=== PATIENT | male | born 1935 | race Caucasian/White ===

== ENCOUNTER 2020-05-29 12:59 | Inpatient (IN) | payer MEDICARE, OTHER ==
[~2020-05-29] VITALS: Ht 172.7 cm; Wt 89.0 kg
[~2020-05-29 12:59] MED LIST: AMLO2.5T5 PO; ASPI-1012 PO; CLON0.1T PO; FOLI0.8T3 PO; LISI40TA9 PO; LORA10TA7 PO; LOVASTATIN PO; METO-408 PO; MONT10TA21 PO; NIAC1000 PO; OMEP20CA4 PO; PSYLLIUM PO; VITAMIN C PO; ZINC50TA64 PO; [UNRECOGNIZED DRUG - CODE] PO; [UNRECOGNIZED DRUG - OTHER] PO; [UNRECOGNIZED DRUG - OTHER] PO; [UNRECOGNIZED DRUG - OTHER] PO
[2020-05-29 13:56] LABS: APPEARANCE,URINE CLOUDY (CLEAR); BILIRUBIN,URINE NEGATIVE (NEGATIVE); COLOR,URINE YELLOW (YELLOW); GLUCOSE, URINE (UA) 100 mg/dL (NEGATIVE); KETONES,URINE NEGATIVE (NEGATIVE); LEUKOCYTE ESTERASE ,URINE MODERATE (NEGATIVE); NITRATE,URINE POSITIVE (NEGATIVE); OCCULT BLOOD,URINE TRACE-INTACT (NEGATIVE); PROTEIN,URINE TRACE mg/dL (NEGATIVE); UROBILINOGEN,URINE 0.2 mg/dL (0.2-1.0)
[2020-05-29 14:00] LABS: BASOPHILS % (AUTO) 0.2 % (0.0-5.0); EOSINOPHILS % (AUTO) 1.1 % (0.0-8.0); HEMATOCRIT 49.7 % (42-54); LYMPHOCYTES % (AUTO) 14.4 % (21.0-51.0); MEAN CORPUSCULAR HEMOGLOBIN 31.9 pg (27.0-33.0); MEAN CORPUSCULAR HGB CONC 33.2 g/dL (32.0-36.0); MEAN CORPUSCULAR VOLUME 96.1 fL (79-99); MONOCYTES % (AUTO) 7.2 % (3.0-13.0); NEUTROPHILS % (AUTO) 76.8 % (40.0-77.0); PLATELET COUNT (AUTO) 235 K/uL (130-400); RED BLOOD CELL COUNT(AUTO) 5.17 MIL/uL (4.50-6.20); RED CELL DISTRIBUTION WIDTH 13.1 % (11.0-15.5); WHITE BLOOD COUNT (AUTO) 13.1 K/uL (4.8-10.8)
[2020-05-29 14:03] LABS: BACTERIA,URINE Many /HPF (None Seen); SQUAMOUS EPITHELIAL CELL,UR 0-2 /HPF (0-2); WBC,URINE TNTC /HPF (0-1)
[2020-05-29] MEDS ORDERED: MORPHINE 2 MG SYG ONE (14:04)
[2020-05-29] MEDS ORDERED: ONDANSETRON 4MG INJ ONE (14:04)
[2020-05-29 14:12] LABS: CREATININE 0.9 mg/dL (0.5-1.5); POTASSIUM 4.3 mmol/L (3.5-5.1)
[2020-05-29 14:16] LABS: ALBUMIN 4.1 g/dL (3.5-5.0); BILIRUBIN,TOTAL 0.6 mg/dL (0.2-1.0); TOTAL PROTEIN, SERUM 8.2 g/dL (6.0-8.3)
[2020-05-29 14:26] LABS: B-TYPE NATRIURETIC PEPTIDE 89 pg/mL (0-100)
[2020-05-29 14:28] LABS: INR 1.01 (0.85-1.15); PROTHROMBIN TIME 10.8 SEC (9.6-11.6)
[2020-05-29] MEDS ORDERED: IOHEXOL-350 75 ML VIAL IV ONE (14:37)
[2020-05-29] MEDS ORDERED: ZOSYN 3.375GM+NS 50ML 50 ML IV ONE (17:46)
[2020-05-29] MEDS ORDERED: ONDANSETRON 4MG INJ IV PRN (20:30)
[2020-05-29] MEDS: FAMOTIDINE 20MG VIAL IV SCH (21:00)
[2020-05-29] MEDS: PHARMACY COMMUNICATION MISC SCH (22:00)
[2020-05-29] MEDS ORDERED: FAMOTIDINE 20MG VIAL IV ONE (22:08)
[2020-05-29 23:10] VITALS: BP 145/80
[2020-05-30] MEDS ORDERED: OMEP20TA25 PO (02:34)
[2020-05-30] MEDS ORDERED: LOVA40TA2 PO (02:34)
[2020-05-30] MEDS ORDERED: LOSA100T58 PO (02:34)
[2020-05-30] MEDS ORDERED: BUDE10.27 IH (02:34)
[2020-05-30] MEDS ORDERED: LORA10TA7 PO (02:34)
[2020-05-30] MEDS ORDERED: MONT-39 PO (02:34)
[2020-05-30] MEDS ORDERED: AMLO-258 PO (02:34)
[2020-05-30] MEDS ORDERED: CLON0.2T PO (02:34)
[2020-05-30] MEDS ORDERED: 0.9%NACL 100ML 100 ML IV ONE (03:57)
[2020-05-30 04:00] VITALS: BP 130/57
[2020-05-30] MEDS: PHARMACY COMMUNICATION MISC SCH ×4 (04:00→22:00)
[2020-05-30] MEDS: ZOSYN 3.375GM+NS 50ML 50 ML IV SCH ×3 (04:01→18:22)
[2020-05-30 06:04] LABS: BASOPHILS % (AUTO) 0.2 % (0.0-5.0); EOSINOPHILS % (AUTO) 0.7 % (0.0-8.0); HEMATOCRIT 46.4 % (42-54); LYMPHOCYTES % (AUTO) 11.5 % (21.0-51.0); MEAN CORPUSCULAR HEMOGLOBIN 31.3 pg (27.0-33.0); MEAN CORPUSCULAR HGB CONC 32.5 g/dL (32.0-36.0); MEAN CORPUSCULAR VOLUME 96.3 fL (79-99); MONOCYTES % (AUTO) 7.5 % (3.0-13.0); NEUTROPHILS % (AUTO) 79.8 % (40.0-77.0); PLATELET COUNT (AUTO) 226 K/uL (130-400); RED BLOOD CELL COUNT(AUTO) 4.82 MIL/uL (4.50-6.20); RED CELL DISTRIBUTION WIDTH 13.1 % (11.0-15.5); WHITE BLOOD COUNT (AUTO) 12.8 K/uL (4.8-10.8)
[2020-05-30 06:39] LABS: ALBUMIN 3.2 g/dL (3.5-5.0); BILIRUBIN,TOTAL 0.7 mg/dL (0.2-1.0); CREATININE 0.9 mg/dL (0.5-1.5)
[2020-05-30 09:22] VITALS: BP 151/74
[2020-05-30] MEDS: METOPROLOL SUCCINATE 50 MG TAB.SR.24H PO SCH (10:31)
[2020-05-30] MEDS: MONTELUKAST SODIUM 10 MG TAB PO SCH (10:31)
[2020-05-30] MEDS: AMLODIPINE 5 MG TAB PO SCH (10:31)
[2020-05-30] MEDS: PANTOPRAZOLE 40 MG TAB DR PO SCH (10:32)
[2020-05-30] MEDS: LORATADINE 10 MG TABLET PO SCH (10:32)
[2020-05-30] MEDS: ASPIRIN 325 MG TABLET PO SCH (10:32)
[2020-05-30] MEDS: ALBUTEROL 0.083% 2.5 MG/3 ML INH IH SCH ×3 (10:51→21:00)
[2020-05-30] MEDS ORDERED: ACETAMINOPHEN 325 MG TAB PO SCH (11:00)
[2020-05-30] MEDS: CLONIDINE HCL 0.2 MG TABLET PO SCH ×3 (12:27→21:00)
[2020-05-30] MEDS: LOSARTAN 50 MG TABLET PO SCH ×2 (12:27→22:01)
[2020-05-30 12:38] VITALS: BP 122/68
[2020-05-30] MEDS ORDERED: CLONIDINE HCL 0.2 MG TABLET PO SCH (14:00)
[2020-05-30] MEDS: BUDESONIDE 0.5 MG/2 ML INH IH SCH (17:35)
[2020-05-30 18:02] VITALS: BP 94/44
[2020-05-30 19:45] VITALS: BP 126/53
[2020-05-30] MEDS: FAMOTIDINE 20MG VIAL IV SCH (22:00)
[2020-05-30] MEDS: ATORVASTATIN 10 MG TABLET PO SCH (22:01)
[2020-05-31] VITALS (7 sets, daily range): BP systolic 95–155; BP diastolic 45–68
[2020-05-31] MEDS: ZOSYN 3.375GM+NS 50ML 50 ML IV SCH (02:21)
[2020-05-31] MEDS: ALBUTEROL 0.083% 2.5 MG/3 ML INH IH SCH ×4 (03:00→18:37)
[2020-05-31] MEDS ORDERED: ACETAMINOPHEN 325 MG TAB PO PRN (03:00)
[2020-05-31] MEDS ORDERED: ACETAMINOPHEN 325 MG TAB ONE (03:00)
[2020-05-31] MEDS: PHARMACY COMMUNICATION MISC SCH ×4 (04:00→21:29)
[2020-05-31 05:29] LABS: BASOPHILS % (AUTO) 0.2 % (0.0-5.0); EOSINOPHILS % (AUTO) 0.1 % (0.0-8.0); HEMATOCRIT 43.9 % (42-54); LYMPHOCYTES % (AUTO) 8.6 % (21.0-51.0); MEAN CORPUSCULAR HEMOGLOBIN 31.9 pg (27.0-33.0); MEAN CORPUSCULAR VOLUME 96.5 fL (79-99); MONOCYTES % (AUTO) 7.9 % (3.0-13.0); NEUTROPHILS % (AUTO) 82.8 % (40.0-77.0); PLATELET COUNT (AUTO) 213 K/uL (130-400); RED BLOOD CELL COUNT(AUTO) 4.55 MIL/uL (4.50-6.20); RED CELL DISTRIBUTION WIDTH 13.3 % (11.0-15.5); WHITE BLOOD COUNT (AUTO) 15.3 K/uL (4.8-10.8)
[2020-05-31 05:53] LABS: CREATININE 1.7 mg/dL (0.5-1.5); MAGNESIUM 1.8 mg/dL (1.80-2.40); POTASSIUM 3.7 mmol/L (3.5-5.1)
[2020-05-31] MEDS: BUDESONIDE 0.5 MG/2 ML INH IH SCH ×2 (06:21→18:37)
[2020-05-31] MEDS: AMLODIPINE 5 MG TAB PO SCH (09:25)
[2020-05-31] MEDS: MONTELUKAST SODIUM 10 MG TAB PO SCH (09:25)
[2020-05-31] MEDS: LORATADINE 10 MG TABLET PO SCH (09:25)
[2020-05-31] MEDS: CLONIDINE HCL 0.2 MG TABLET PO SCH (09:25)
[2020-05-31] MEDS: METOPROLOL SUCCINATE 50 MG TAB.SR.24H PO SCH (09:25)
[2020-05-31] MEDS: PANTOPRAZOLE 40 MG TAB DR PO SCH (09:25)
[2020-05-31] MEDS: ASPIRIN 325 MG TABLET PO SCH (09:25)
[2020-05-31] MEDS: DOCUSATE SODIUM 100 MG CAP PO SCH (12:41)
[2020-05-31] MEDS: POLYETHYLENE GLYCOL 3350 17 GM POWD.PACK PO SCH (12:41)
[2020-05-31] MEDS ORDERED: ZOSYN 3.375GM+NS 50ML 50 ML IV SCH (13:00)
[2020-05-31 14:36] LABS: CREATININE 1.8 mg/dL (0.5-1.5); POTASSIUM 3.9 mmol/L (3.5-5.1)
[2020-05-31] MEDS: DEXTROSE 5%-LACTATED RINGERS 1,000 ML IV SCH (18:17)
[2020-05-31] MEDS: ATORVASTATIN 10 MG TABLET PO SCH (21:27)
[2020-05-31] MEDS: FAMOTIDINE 20MG VIAL IV SCH (21:27)
[2020-05-31 21:50] LABS: CREATININE,URINE RANDOM 235 mg/dL (30-135); SODIUM,URINE RANDOM 32 mmol/l (40-220)
[2020-06-01] VITALS (32 sets, daily range): BP systolic 101–158; BP diastolic 49–90
[2020-06-01] MEDS: ZOSYN 3.375GM+NS 50ML 50 ML IV SCH ×2 (00:11→13:43)
[2020-06-01] MEDS: ALBUTEROL 0.083% 2.5 MG/3 ML INH IH SCH ×4 (02:48→18:40)
[2020-06-01] MEDS ORDERED: METOPROLOL TARTRATE 1 MG/ML 5ML VIAL IV ONE (02:51)
[2020-06-01] MEDS: METOPROLOL TARTRATE 1 MG/ML 5ML VIAL IV SCH (03:00)
[2020-06-01] MEDS: PHARMACY COMMUNICATION MISC SCH ×3 (03:38→16:00)
[2020-06-01] MEDS: BUDESONIDE 0.5 MG/2 ML INH IH SCH ×2 (06:38→18:39)
[2020-06-01 06:57] LABS: BASOPHILS % (AUTO) 0.2 % (0.0-5.0); EOSINOPHILS % (AUTO) 0.1 % (0.0-8.0); HEMATOCRIT 44.7 % (42-54); LYMPHOCYTES % (AUTO) 5.8 % (21.0-51.0); MEAN CORPUSCULAR HEMOGLOBIN 31.6 pg (27.0-33.0); MEAN CORPUSCULAR HGB CONC 33.3 g/dL (32.0-36.0); MEAN CORPUSCULAR VOLUME 94.7 fL (79-99); MONOCYTES % (AUTO) 6.8 % (3.0-13.0); NEUTROPHILS % (AUTO) 86.5 % (40.0-77.0); PLATELET COUNT (AUTO) 223 K/uL (130-400); RED BLOOD CELL COUNT(AUTO) 4.72 MIL/uL (4.50-6.20); RED CELL DISTRIBUTION WIDTH 13.2 % (11.0-15.5); WHITE BLOOD COUNT (AUTO) 19.6 K/uL (4.8-10.8)
[2020-06-01 07:34] LABS: ALBUMIN 2.9 g/dL (3.5-5.0); BILIRUBIN,DIRECT 0.2 mg/dL (0.0-0.3); BILIRUBIN,TOTAL 0.9 mg/dL (0.2-1.0); CREATININE 1.2 mg/dL (0.5-1.5); POTASSIUM 3.6 mmol/L (3.5-5.1); TOTAL PROTEIN, SERUM 7.2 g/dL (6.0-8.3)
[2020-06-01] MEDS ORDERED: ROCURONIUM 10MG/1ML SYR 10 MG/ML ML ONE (08:02)
[2020-06-01] MEDS ORDERED: KETAMINE 50MG/ML SYRINGE 50 MG/ML DISP.SYRIN IV ONE (08:02)
[2020-06-01] MEDS ORDERED: PROPOFOL 10 MG/ML 20ML VIAL IV ONE (08:02)
[2020-06-01] MEDS ORDERED: SUCCINYLCHOLINE CHLORIDE 20 MG/ML 10 ML VIAL ONE (08:02)
[2020-06-01] MEDS ORDERED: LIDOCAINE PF 100MG/5ML (2%) SYRINGE 5ML ONE (08:02)
[2020-06-01] MEDS ORDERED: FENTANYL CITRATE PF 50 MCG/1 ML 2ML VIAL ONE (08:03)
[2020-06-01] MEDS: DEXTROSE 5%-LACTATED RINGERS 1,000 ML IV SCH (08:10)
[2020-06-01] MEDS ORDERED: ALBUMIN (HUMAN) 5% 250 ML IV ONE (08:51)
[2020-06-01] MEDS: LORATADINE 10 MG TABLET PO SCH (09:00)
[2020-06-01] MEDS: AMLODIPINE 5 MG TAB PO SCH ×2 (09:00→16:50)
[2020-06-01] MEDS ORDERED: BUPIVACAINE/PF 0.5% 30ML VIAL ONE (09:00)
[2020-06-01] MEDS: PANTOPRAZOLE 40 MG TAB DR PO SCH (09:00)
[2020-06-01] MEDS: METOPROLOL SUCCINATE 50 MG TAB.SR.24H PO SCH ×2 (09:00→16:50)
[2020-06-01] MEDS ORDERED: GLYCOPYRROLATE 1 MG/5 ML SYRINGE ONE (09:31)
[2020-06-01] MEDS ORDERED: ONDANSETRON 4MG INJ ONE (09:31)
[2020-06-01] MEDS ORDERED: NEOSTIGMINE 5MG/5ML SYR IV ONE (09:32)
[2020-06-01] MEDS ORDERED: MORPHINE 2 MG SYG ONE ×2 (10:36→10:43)
[2020-06-01] MEDS: POLYETHYLENE GLYCOL 3350 17 GM POWD.PACK PO SCH (11:30)
[2020-06-01] MEDS: DOCUSATE SODIUM 100 MG CAP PO SCH (11:30)
[2020-06-01] MEDS: MORPHINE 2 MG SYG IV PRN ×2 (13:42→23:45)
[2020-06-01] MEDS: MONTELUKAST SODIUM 10 MG TAB PO SCH (14:31)
[2020-06-01] MEDS ORDERED: KETOROLAC 30MG VIAL (30MG/ML) IV PRN (19:45)
[2020-06-01] MEDS: FAMOTIDINE 20MG VIAL IV SCH (21:17)
[2020-06-01] MEDS: ATORVASTATIN 10 MG TABLET PO SCH (21:17)
[2020-06-02] MEDS: ALBUTEROL 0.083% 2.5 MG/3 ML INH IH SCH ×5 (00:23→18:22)
[2020-06-02] MEDS: ZOSYN 3.375GM+NS 50ML 50 ML IV SCH ×2 (00:52→13:01)
[2020-06-02] MEDS ORDERED: LORAZEPAM 2 MG/ML 1 ML VIAL ONE (01:08)
[2020-06-02] MEDS ORDERED: LORAZEPAM 2 MG/ML 1 ML VIAL IVP ONE (01:15)
[2020-06-02] MEDS: METOPROLOL TARTRATE 1 MG/ML 5ML VIAL IV SCH (03:00)
[2020-06-02 03:54] VITALS: BP 110/52
[2020-06-02 04:06] LABS: BASOPHILS % (AUTO) 0.1 % (0.0-5.0); HEMATOCRIT 44.4 % (42-54); LYMPHOCYTES % (AUTO) 8.7 % (21.0-51.0); MEAN CORPUSCULAR HEMOGLOBIN 31.9 pg (27.0-33.0); MEAN CORPUSCULAR HGB CONC 32.2 g/dL (32.0-36.0); MEAN CORPUSCULAR VOLUME 99.1 fL (79-99); MONOCYTES % (AUTO) 7.8 % (3.0-13.0); PLATELET COUNT (AUTO) 247 K/uL (130-400); RED BLOOD CELL COUNT(AUTO) 4.48 MIL/uL (4.50-6.20); RED CELL DISTRIBUTION WIDTH 13.5 % (11.0-15.5)
[2020-06-02 04:16] LABS: CREATININE 1.4 mg/dL (0.5-1.5); PHOSPHORUS 2.6 mg/dL (2.5-4.9); POTASSIUM 4.3 mmol/L (3.5-5.1); URIC ACID 4.7 mg/dL (2.6-7.2)
[2020-06-02] MEDS: BUDESONIDE 0.5 MG/2 ML INH IH SCH ×2 (06:00→19:07)
[2020-06-02 08:43] VITALS: BP 119/57
[2020-06-02] MEDS: MONTELUKAST SODIUM 10 MG TAB PO SCH (09:00)
[2020-06-02] MEDS: Vitamin B Complex/Vit C/Folic Acid PO SCH (09:00)
[2020-06-02] MEDS: LORATADINE 10 MG TABLET PO SCH (09:00)
[2020-06-02] MEDS: AMLODIPINE 5 MG TAB PO SCH (09:28)
[2020-06-02] MEDS: METOPROLOL SUCCINATE 50 MG TAB.SR.24H PO SCH (09:28)
[2020-06-02] MEDS: MORPHINE 2 MG SYG IV PRN (09:37)
[2020-06-02 11:49] VITALS: BP 122/64
[2020-06-02] MEDS: DOCUSATE SODIUM 100 MG CAP PO SCH (13:01)
[2020-06-02 17:07] VITALS: BP 119/65
[2020-06-02] MEDS: DEXTROSE 5%-LACTATED RINGERS 1,000 ML IV SCH (18:28)
[2020-06-02 20:00] VITALS: BP 108/59
[2020-06-02] MEDS: ATORVASTATIN 10 MG TABLET PO SCH (22:00)
[2020-06-02] MEDS: FAMOTIDINE 20MG VIAL IV SCH (22:00)
[2020-06-03] MEDS: ALBUTEROL 0.083% 2.5 MG/3 ML INH IH SCH ×5 (00:24→23:36)
[2020-06-03] MEDS: ZOSYN 3.375GM+NS 50ML 50 ML IV SCH ×2 (01:04→13:25)
[2020-06-03 01:08] VITALS: BP 129/77
[2020-06-03] MEDS ORDERED: PHARMACY COMMUNICATION MISC SCH (02:45)
[2020-06-03 05:17] LABS: BASOPHILS % (AUTO) 0.1 % (0.0-5.0); HEMATOCRIT 43.1 % (42-54); LYMPHOCYTES % (AUTO) 8.1 % (21.0-51.0); MEAN CORPUSCULAR HEMOGLOBIN 31.3 pg (27.0-33.0); MEAN CORPUSCULAR HGB CONC 31.6 g/dL (32.0-36.0); MEAN CORPUSCULAR VOLUME 99.1 fL (79-99); MONOCYTES % (AUTO) 6.1 % (3.0-13.0); NEUTROPHILS % (AUTO) 85.3 % (40.0-77.0); PLATELET COUNT (AUTO) 249 K/uL (130-400); RED BLOOD CELL COUNT(AUTO) 4.35 MIL/uL (4.50-6.20); RED CELL DISTRIBUTION WIDTH 13.4 % (11.0-15.5); WHITE BLOOD COUNT (AUTO) 12.3 K/uL (4.8-10.8)
[2020-06-03 05:40] LABS: ALBUMIN 2.5 g/dL (3.5-5.0); BILIRUBIN,TOTAL 0.4 mg/dL (0.2-1.0); CREATININE 1.3 mg/dL (0.5-1.5); TOTAL PROTEIN, SERUM 7.1 g/dL (6.0-8.3)
[2020-06-03] MEDS: KETOROLAC 30MG VIAL (30MG/ML) IV SCH ×3 (06:00→18:24)
[2020-06-03 06:13] VITALS: BP 125/65
[2020-06-03] MEDS: BUDESONIDE 0.5 MG/2 ML INH IH SCH ×2 (06:48→18:10)
[2020-06-03 08:27] VITALS: BP 128/72
[2020-06-03] MEDS: AMLODIPINE 5 MG TAB PO SCH (09:19)
[2020-06-03] MEDS: METOPROLOL SUCCINATE 50 MG TAB.SR.24H PO SCH (09:19)
[2020-06-03] MEDS: Vitamin B Complex/Vit C/Folic Acid PO SCH (09:19)
[2020-06-03] MEDS: LORATADINE 10 MG TABLET PO SCH (09:19)
[2020-06-03] MEDS: MONTELUKAST SODIUM 10 MG TAB PO SCH (09:19)
[2020-06-03] MEDS: DOCUSATE SODIUM 100 MG CAP PO SCH (11:30)
[2020-06-03 11:54] VITALS: BP 137/79
[2020-06-03 16:03] VITALS: BP 134/78
[2020-06-03 20:23] VITALS: BP 111/60
[2020-06-03] MEDS: ATORVASTATIN 10 MG TABLET PO SCH (22:41)
[2020-06-03] MEDS: FAMOTIDINE 20MG VIAL IV SCH (22:41)
[2020-06-04 00:25] VITALS: BP 115/53
[2020-06-04] MEDS: ZOSYN 3.375GM+NS 50ML 50 ML IV SCH ×2 (00:47→14:28)
[2020-06-04] MEDS: KETOROLAC 30MG VIAL (30MG/ML) IV SCH ×5 (00:48→23:15)
[2020-06-04 05:18] LABS: HEMATOCRIT 43.7 % (42-54); MEAN CORPUSCULAR HEMOGLOBIN 31.8 pg (27.0-33.0); MEAN CORPUSCULAR HGB CONC 32.3 g/dL (32.0-36.0); MEAN CORPUSCULAR VOLUME 98.6 fL (79-99); RED BLOOD CELL COUNT(AUTO) 4.43 MIL/uL (4.50-6.20); RED CELL DISTRIBUTION WIDTH 13.4 % (11.0-15.5); WHITE BLOOD COUNT (AUTO) 13.4 K/uL (4.8-10.8)
[2020-06-04 05:28] LABS: CREATININE 1.3 mg/dL (0.5-1.5); MAGNESIUM 1.9 mg/dL (1.80-2.40); POTASSIUM 3.7 mmol/L (3.5-5.1)
[2020-06-04 06:45] VITALS: BP 110/56
[2020-06-04 07:30] VITALS: BP 132/72
[2020-06-04] MEDS: BUDESONIDE 0.5 MG/2 ML INH IH SCH ×2 (07:42→18:00)
[2020-06-04] MEDS: ALBUTEROL 0.083% 2.5 MG/3 ML INH IH SCH ×3 (07:42→18:00)
[2020-06-04 11:00] VITALS: BP 129/79
[2020-06-04] MEDS: Vitamin B Complex/Vit C/Folic Acid PO SCH (11:20)
[2020-06-04] MEDS: METOPROLOL SUCCINATE 50 MG TAB.SR.24H PO SCH (11:21)
[2020-06-04] MEDS: LORATADINE 10 MG TABLET PO SCH (11:21)
[2020-06-04] MEDS: MONTELUKAST SODIUM 10 MG TAB PO SCH (11:23)
[2020-06-04] MEDS: AMLODIPINE 5 MG TAB PO SCH (11:23)
[2020-06-04] MEDS: DOCUSATE SODIUM 100 MG CAP PO SCH (11:30)
[2020-06-04] MEDS ORDERED: DILTIAZEM 60MG TAB PO SCH ×2 (15:00→16:00)
[2020-06-04 16:00] VITALS: BP 137/71
[2020-06-04] MEDS: DILTIAZEM 60MG TAB PO SCH (19:47)
[2020-06-04 20:00] VITALS: BP 139/61
[2020-06-04] MEDS: ATORVASTATIN 10 MG TABLET PO SCH (20:16)
[2020-06-04] MEDS: FAMOTIDINE 20MG VIAL IV SCH (20:16)
[2020-06-05] VITALS: BP 144/76
[2020-06-05] MEDS: DILTIAZEM 60MG TAB PO SCH ×5 (01:14→23:30)
[2020-06-05] MEDS: ZOSYN 3.375GM+NS 50ML 50 ML IV SCH ×3 (01:14→23:29)
[2020-06-05 04:00] VITALS: BP 114/63
[2020-06-05] MEDS: KETOROLAC 30MG VIAL (30MG/ML) IV SCH ×4 (04:52→23:29)
[2020-06-05 06:22] LABS: BASOPHILS % (AUTO) 0.2 % (0.0-5.0); HEMATOCRIT 42.1 % (42-54); LYMPHOCYTES % (AUTO) 10.3 % (21.0-51.0); MEAN CORPUSCULAR HEMOGLOBIN 31.4 pg (27.0-33.0); MEAN CORPUSCULAR HGB CONC 32.5 g/dL (32.0-36.0); MEAN CORPUSCULAR VOLUME 96.6 fL (79-99); MONOCYTES % (AUTO) 8.1 % (3.0-13.0); NEUTROPHILS % (AUTO) 79.8 % (40.0-77.0); PLATELET COUNT (AUTO) 337 K/uL (130-400); RED BLOOD CELL COUNT(AUTO) 4.36 MIL/uL (4.50-6.20); RED CELL DISTRIBUTION WIDTH 13.2 % (11.0-15.5); WHITE BLOOD COUNT (AUTO) 12.2 K/uL (4.8-10.8)
[2020-06-05] MEDS: BUDESONIDE 0.5 MG/2 ML INH IH SCH ×2 (06:39→18:51)
[2020-06-05] MEDS: ALBUTEROL 0.083% 2.5 MG/3 ML INH IH SCH ×2 (06:39)
[2020-06-05 06:43] LABS: CREATININE 1.1 mg/dL (0.5-1.5); POTASSIUM 3.3 mmol/L (3.5-5.1)
[2020-06-05] MEDS ORDERED: ALBUTEROL 0.083% 2.5 MG/3 ML INH IH PRN (08:00)
[2020-06-05 08:06] VITALS: BP 111/60
[2020-06-05] MEDS ORDERED: POTASSIUM CHLORIDE 20MEQ/100ML 100 ML IV PRN (08:30)
[2020-06-05] MEDS ORDERED: POTASSIUM CHLORIDE 10% ELIXIR 20 MEQ/15 ML UDCUP PO PRN (08:30)
[2020-06-05] MEDS: MONTELUKAST SODIUM 10 MG TAB PO SCH (10:01)
[2020-06-05] MEDS: Vitamin B Complex/Vit C/Folic Acid PO SCH (10:01)
[2020-06-05] MEDS: LORATADINE 10 MG TABLET PO SCH (10:01)
[2020-06-05] MEDS: DOCUSATE SODIUM 100 MG CAP PO SCH (11:30)
[2020-06-05 12:06] VITALS: BP 117/77
[2020-06-05] MEDS: KCL 20 MEQ ERTAB PO PRN ×2 (13:36→18:30)
[2020-06-05] MEDS ORDERED: ACETAMINOPHEN WITH CODEINE 1 TAB TAB PO PRN (15:45)
[2020-06-05 16:25] VITALS: BP 129/63
[2020-06-05 20:17] VITALS: BP 121/48
[2020-06-05] MEDS: ATORVASTATIN 10 MG TABLET PO SCH (21:13)
[2020-06-05] MEDS: FAMOTIDINE 20MG VIAL IV SCH (21:13)
[2020-06-05 23:06] LABS: BILIRUBIN,URINE Negative (NEGATIVE); COLOR,URINE Yellow (YELLOW); GLUCOSE, URINE (UA) Negative (NEGATIVE); KETONES,URINE Negative (NEGATIVE); LEUKOCYTE ESTERASE ,URINE Small (NEGATIVE); NITRATE,URINE Negative (NEGATIVE); OCCULT BLOOD,URINE Nonhemolyzed Trace (NEGATIVE); PH,URINE 7.5 (5.0-8.0); PROTEIN,URINE POS 1+ mg/dL (NEGATIVE)
[2020-06-05 23:08] LABS: APPEARANCE,URINE SLIGHTLY CLOUDY (CLEAR)
[2020-06-05 23:14] LABS: BACTERIA,URINE Rare /HPF (None Seen); MUCUS,URINE Few LPF (None Seen); SQUAMOUS EPITHELIAL CELL,UR Rare /HPF (0-2)
[2020-06-06 03:52] LABS: BASOPHILS % (AUTO) 0.3 % (0.0-5.0); EOSINOPHILS % (AUTO) 1.3 % (0.0-8.0); HEMATOCRIT 41.6 % (42-54); LYMPHOCYTES % (AUTO) 11.8 % (21.0-51.0); MEAN CORPUSCULAR HEMOGLOBIN 30.7 pg (27.0-33.0); MEAN CORPUSCULAR VOLUME 96.1 fL (79-99); MONOCYTES % (AUTO) 8.3 % (3.0-13.0); NEUTROPHILS % (AUTO) 77.2 % (40.0-77.0); PLATELET COUNT (AUTO) 365 K/uL (130-400); RED BLOOD CELL COUNT(AUTO) 4.33 MIL/uL (4.50-6.20); RED CELL DISTRIBUTION WIDTH 13.2 % (11.0-15.5); WHITE BLOOD COUNT (AUTO) 12.3 K/uL (4.8-10.8)
[2020-06-06 04:07] LABS: CREATININE 1.1 mg/dL (0.5-1.5); MAGNESIUM 1.9 mg/dL (1.80-2.40); POTASSIUM 4.1 mmol/L (3.5-5.1)
[2020-06-06 04:25] VITALS: BP 98/62
[2020-06-06] MEDS: KETOROLAC 30MG VIAL (30MG/ML) IV SCH ×3 (05:48→18:56)
[2020-06-06] MEDS: DILTIAZEM 60MG TAB PO SCH ×3 (05:49→18:56)
[2020-06-06] MEDS: BUDESONIDE 0.5 MG/2 ML INH IH SCH ×2 (06:34→19:00)
[2020-06-06 08:16] VITALS: BP 164/78
[2020-06-06] MEDS: MONTELUKAST SODIUM 10 MG TAB PO SCH (08:34)
[2020-06-06] MEDS: LORATADINE 10 MG TABLET PO SCH (08:34)
[2020-06-06] MEDS: DOCUSATE SODIUM 100 MG CAP PO SCH (08:34)
[2020-06-06] MEDS: Vitamin B Complex/Vit C/Folic Acid PO SCH (08:34)
[2020-06-06 11:43] VITALS: BP 154/83
[2020-06-06] MEDS: ZOSYN 3.375GM+NS 50ML 50 ML IV SCH (13:00)
[2020-06-06 16:32] VITALS: BP 113/56
[2020-06-06 19:36] VITALS: BP 140/81
[2020-06-06] MEDS: FAMOTIDINE 20MG VIAL IV SCH (21:59)
[2020-06-06] MEDS: ATORVASTATIN 10 MG TABLET PO SCH (22:00)
[2020-06-06 23:18] VITALS: BP 139/60
[2020-06-07] MEDS: DILTIAZEM 60MG TAB PO SCH ×4 (00:44→17:46)
[2020-06-07] MEDS: ZOSYN 3.375GM+NS 50ML 50 ML IV SCH ×2 (00:44→13:04)
[2020-06-07 03:30] VITALS: BP 143/66
[2020-06-07 05:25] LABS: BASOPHILS % (AUTO) 0.6 % (0.0-5.0); EOSINOPHILS % (AUTO) 1.9 % (0.0-8.0); HEMATOCRIT 44.8 % (42-54); LYMPHOCYTES % (AUTO) 13.4 % (21.0-51.0); MEAN CORPUSCULAR HEMOGLOBIN 31.7 pg (27.0-33.0); MEAN CORPUSCULAR HGB CONC 32.8 g/dL (32.0-36.0); MEAN CORPUSCULAR VOLUME 96.6 fL (79-99); MONOCYTES % (AUTO) 7.6 % (3.0-13.0); NEUTROPHILS % (AUTO) 74.8 % (40.0-77.0); PLATELET COUNT (AUTO) 435 K/uL (130-400); RED BLOOD CELL COUNT(AUTO) 4.64 MIL/uL (4.50-6.20); RED CELL DISTRIBUTION WIDTH 13.3 % (11.0-15.5); WHITE BLOOD COUNT (AUTO) 12.4 K/uL (4.8-10.8)
[2020-06-07 05:50] LABS: CREATININE 1.1 mg/dL (0.5-1.5); POTASSIUM 3.8 mmol/L (3.5-5.1)
[2020-06-07] MEDS: BUDESONIDE 0.5 MG/2 ML INH IH SCH ×2 (06:36→18:00)
[2020-06-07 07:30] VITALS: BP 124/70
[2020-06-07] MEDS: DOCUSATE SODIUM 100 MG CAP PO SCH (09:29)
[2020-06-07] MEDS: MONTELUKAST SODIUM 10 MG TAB PO SCH (09:29)
[2020-06-07] MEDS: Vitamin B Complex/Vit C/Folic Acid PO SCH (09:29)
[2020-06-07] MEDS: LORATADINE 10 MG TABLET PO SCH (09:29)
[2020-06-07] MEDS: APIXABAN 5 MG TABLET PO SCH ×2 (09:45→22:19)
[2020-06-07 11:00] VITALS: BP 101/68
[2020-06-07 16:00] VITALS: BP 133/88
[2020-06-07 19:44] VITALS: BP 139/68
[2020-06-07] MEDS: ATORVASTATIN 10 MG TABLET PO SCH (22:18)
[2020-06-07] MEDS: FAMOTIDINE 20MG VIAL IV SCH (22:18)
[2020-06-07 23:40] VITALS: BP 140/81
[2020-06-08] MEDS: ZOSYN 3.375GM+NS 50ML 50 ML IV SCH ×2 (01:28→13:00)
[2020-06-08 04:40] VITALS: BP 131/89
[2020-06-08 06:27] LABS: BASOPHILS % (AUTO) 0.4 % (0.0-5.0); EOSINOPHILS % (AUTO) 2.5 % (0.0-8.0); LYMPHOCYTES % (AUTO) 15.4 % (21.0-51.0); MEAN CORPUSCULAR HEMOGLOBIN 31.1 pg (27.0-33.0); MEAN CORPUSCULAR HGB CONC 32.4 g/dL (32.0-36.0); MEAN CORPUSCULAR VOLUME 96.1 fL (79-99); MONOCYTES % (AUTO) 8.2 % (3.0-13.0); NEUTROPHILS % (AUTO) 71.2 % (40.0-77.0); PLATELET COUNT (AUTO) 443 K/uL (130-400); RED BLOOD CELL COUNT(AUTO) 4.37 MIL/uL (4.50-6.20); RED CELL DISTRIBUTION WIDTH 13.2 % (11.0-15.5); WHITE BLOOD COUNT (AUTO) 10.6 K/uL (4.8-10.8)
[2020-06-08 06:37] LABS: CREATININE 1.1 mg/dL (0.5-1.5); POTASSIUM 3.7 mmol/L (3.5-5.1)
[2020-06-08] MEDS: BUDESONIDE 0.5 MG/2 ML INH IH SCH (06:48)
[2020-06-08 08:00] VITALS: BP 117/72
[2020-06-08] MEDS ORDERED: DILTIAZEM 120MG SR CAP PO SCH (09:00)
[2020-06-08] MEDS: MONTELUKAST SODIUM 10 MG TAB PO SCH (09:49)
[2020-06-08] MEDS: LORATADINE 10 MG TABLET PO SCH (09:49)
[2020-06-08] MEDS: Vitamin B Complex/Vit C/Folic Acid PO SCH (09:49)
[2020-06-08] MEDS: APIXABAN 5 MG TABLET PO SCH (09:49)
[2020-06-08 11:00] VITALS: BP 112/69
[2020-06-08] MEDS: DOCUSATE SODIUM 100 MG CAP PO SCH (11:30)
[2020-06-08] MEDS ORDERED: DILT240C97 PO (16:15)
[2020-06-08] MEDS ORDERED: APIX5TAB PO (16:15)
== END 2020-06-08 17:23 | disposition home health service (06) | DRG 853 ==
LOC: EDH 12:59 → EDHIP 20:17 → 3DH 22:23
PROVIDERS: ADMIT Internal Medicine; ATTEND Internal Medicine
PROC: 0WQF0ZZ Repair Abdominal Wall, Open Approach (ICD-10-PCS; principal; 2020-06-01 08:22)
PROC: 0DTJ0ZZ Resection of Appendix, Open Approach (ICD-10-PCS; 2020-06-01 08:22)
PROC: 0DB80ZZ Excision of Small Intestine, Open Approach (ICD-10-PCS; 2020-06-01 08:22)
PROC: 0W9F00Z Drainage of Abdominal Wall with Drainage Device, Open Approach (ICD-10-PCS; 2020-06-01 08:22)
DX: A41.9 Sepsis, unspecified organism (principal); K35.32 Acute appendicitis with perforation, localized peritonitis, and gangrene, without abscess; N39.0 Urinary tract infection, site not specified; N17.9 Acute kidney failure, unspecified; K43.0 Incisional hernia with obstruction, without gangrene; J96.11 Chronic respiratory failure with hypoxia; L02.211 Cutaneous abscess of abdominal wall; L03.311 Cellulitis of abdominal wall; N18.9 Chronic kidney disease, unspecified; B96.20 Unspecified Escherichia coli [E. coli] as the cause of diseases classified elsewhere; D64.9 Anemia, unspecified; E11.22 Type 2 diabetes mellitus with diabetic chronic kidney disease; E66.9 Obesity, unspecified; E78.5 Hyperlipidemia, unspecified; G89.29 Other chronic pain; I12.9 Hypertensive chronic kidney disease with stage 1 through stage 4 chronic kidney disease, or unspecified chronic kidney disease; I48.0 Paroxysmal atrial fibrillation; I70.0 Atherosclerosis of aorta; K66.0 Peritoneal adhesions (postprocedural) (postinfection); N40.0 Benign prostatic hyperplasia without lower urinary tract symptoms; Z20.828 Contact with and (suspected) exposure to other viral communicable diseases; R53.81 Other malaise; J44.9 Chronic obstructive pulmonary disease, unspecified; E78.00 Pure hypercholesterolemia, unspecified; B96.5 Pseudomonas (aeruginosa) (mallei) (pseudomallei) as the cause of diseases classified elsewhere; I08.3 Combined rheumatic disorders of mitral, aortic and tricuspid valves; Z82.0 Family history of epilepsy and other diseases of the nervous system; Z82.3 Family history of stroke; Z82.49 Family history of ischemic heart disease and other diseases of the circulatory system; Z82.5 Family history of asthma and other chronic lower respiratory diseases; Z83.3 Family history of diabetes mellitus; Z85.51 Personal history of malignant neoplasm of bladder; Z85.528 Personal history of other malignant neoplasm of kidney; Z87.891 Personal history of nicotine dependence; Z90.5 Acquired absence of kidney; Z90.79 Acquired absence of other genital organ(s); Z68.29 Body mass index [BMI] 29.0-29.9, adult; Z88.8 Allergy status to other drugs, medicaments and biological substances; Z20.822 Contact with and (suspected) exposure to COVID-19
CPT/HCPCS: 36415; 71045; 71250; 74176; 76705; 76770; 80048; 80053; 80076; 81001; 82550; 82570; 82948; 83605; 83690; 83735; 83880; 84100; 84145; 84300; 84439; 84443; 84484; 84550; 85025; 85027; 85610; 85730; 87040; 87070; 87076; 87077; 87088; 87186; 87205; 87426; 88304; 88307; 93005; 93306; 93356; 94640; 94664; 94760; A4344; A6266; G0378; J0330; J1885; J2001; J2060; J2405; J2543; J2704; J2710; J3010; J3490; P9045; Q9967; U0003